=== PATIENT | female | born 1985 | race Caucasian/White ===

== ENCOUNTER 2017-09-24 18:54 | Emergency (ER) | payer SELFPAY ==
[~2017-09-24] VITALS: Ht 160 cm; Wt 64.0 kg
[2017-09-24] MEDS ORDERED: ONDANSETRON HCL 4MG/2ML VIAL IV STA (19:16)
[2017-09-24] MEDS ORDERED: SODIUM CHLORIDE 0.9% 1,000 ML IV ONE (19:16)
[2017-09-24] MEDS ORDERED: LORAZEPAM 2MG/ML CPJ IM ONE (19:30)
[2017-09-24] MEDS ORDERED: OLANZAPINE 10 MG/VIAL IM ONE (19:30)
[2017-09-24 20:24] LABS: BASOPHILS % 0.8 % (0.0-2.0); EOSINOPHILS % 0.1 % (0.0-5.0); HEMATOCRIT. 37.7 % (36.0-48.0); HEMOGLOBIN. 12.4 g/dL (12.0-16.0); LYMPHOCYTES % 48.5 % (20.0-50.0); MEAN CORPUSCULAR HEMOGLOBIN 27.6 pg (28.0-32.0); MEAN PLATELET VOLUME 7.3 fl (7.4-10.4); MONOCYTES % 3.4 % (2.0-8.0); NEUTROPHILS % 47.2 % (40.0-76.0); PLATELET 357 x1000/uL (130-400); RED BLOOD CELL COUNT 4.49 mill/uL (4.2-5.4)
[2017-09-24 20:38] LABS: CHLORIDE 112 mEq/L (98-107)
[2017-09-24 20:42] LABS: HCG SCREEN NEGATIVE
[2017-09-24 20:47] LABS: CREATINE KINASE 306 IU/L (26-192)
[2017-09-24 20:49] LABS: AMMONIA 42 uMol/L (<32)
[2017-09-24 20:52] LABS: ETHANOL BLOOD 325 mg/dL
[2017-09-24 21:30] LABS: CLARITY URINE CLEAR (CLEAR); COLOR URINE YELLOW (YELLOW); KETONES URINE NEGATIVE (NEGATIVE); LEUKOCYTE ESTERASE URINE TRACE (NEGATIVE); NITRITE URINE NEGATIVE (NEGATIVE); OCCULT BLOOD URINE NEGATIVE (NEGATIVE); PROTEIN URINE NEGATIVE (NEGATIVE); SPECIFIC GRAVITY URINE 1.013 (1.005-1.030); UROBILINOGEN URINE 0.2 E.U./dL (0.2-1.0)
[2017-09-24 21:40] LABS: *AMPHETAMINES SCREEN URINE NEGATIVE (NEGATIVE); *BARBITURATES SCREEN URINE NEGATIVE (NEGATIVE); *BENZODIAZEPINES SCREEN URINE NEGATIVE (NEGATIVE); *COCAINE SCREEN URINE NEGATIVE (NEGATIVE); METHADONE URINE SCREEN NEGATIVE (NEGATIVE); OPIATES URINE SCREEN NEGATIVE (NEGATIVE)
[2017-09-24 21:41] LABS: CANNABINOID URINE SCREEN NEGATIVE (NEGATIVE); PHENCYCLIDINE URINE SCREEN NEGATIVE (NEGATIVE)
[2017-09-25 05:05] VITALS: BP 121/68
== END 2017-09-25 05:30 | disposition home or self-care (01) ==
LOC: ER 21:01
DX: G92 Toxic encephalopathy (principal); T51.0X1A Toxic effect of ethanol, accidental (unintentional), initial encounter; F11.10 Opioid abuse, uncomplicated; Z79.899 Other long term (current) drug therapy; Y92.89 Other specified places as the place of occurrence of the external cause
CPT/HCPCS: 36415; 80053; 80305; 81003; 82140; 82550; 84484; 84703; 85025; 87086; 93005; 96361; 96372; 96374; 99285; G0482; J2060; J2405; J3490; J7030; Z7610; A4315